=== PATIENT | female | born 1965 | race African-American/Black ===

== ENCOUNTER 2025-03-13 17:51 | Inpatient (IN) | payer MEDICAID ==
[~2025-03-13] VITALS: Ht 162.6 cm; Wt 82.6 kg
[2025-03-13] MEDS: CEFTRIAXONE 1GM/50ML 50 ML IV ONE (18:30)
[2025-03-13] MEDS: SODIUM CHLORIDE 0.9% (SEPSIS BOLUS) IV ONE (18:37)
[2025-03-13] MEDS: AZITHROMYCIN 500MG/250ML 250 ML IV ONE (18:37)
[2025-03-13 18:50] LABS: BASOPHILS % 0.4 % (0.0-2.0); DIFFERENTIAL COMMENT 0; EOSINOPHILS % 0.1 % (0.0-5.0); HEMATOCRIT. 45.9 % (36.0-48.0); HEMOGLOBIN. 13.3 g/dL (12.0-16.0); LYMPHOCYTES % 15.1 % (20.0-50.0); MEAN CORPUSCULAR HEMOGLOBIN 26.7 pg (28.0-32.0); MEAN CORPUSCULAR HGB CONC 28.9 g/dL (31.0-37.0); MEAN CORPUSCULAR VOLUME 92.5 fL (81.0-99.0); MEAN PLATELET VOLUME 9.5 fl (7.4-10.4); MONOCYTES % 6.8 % (2.0-8.0); NEUTROPHILS % 77.6 % (40.0-76.0); PLATELET 347 x1000/uL (130-400); RED BLOOD CELL COUNT 4.97 mill/uL (4.2-5.4); RED CELL DISTRIBUTION WIDTH 17.2 % (11.6-14.6); WHITE BLOOD COUNT 18.2 x1000/uL (4.5-11.0)
[2025-03-13 18:59] LABS: CHLORIDE 96 mEq/L (98-107); POTASSIUM 5.5 mEq/L (3.5-5.1); SODIUM 135 mEq/L (136-145)
[2025-03-13 19:00] LABS: CALCIUM 9.1 mg/dL (8.7-10.4)
[2025-03-13 19:05] LABS: CREATININE 1.8 mg/dL (0.6-1.0); ETHANOL BLOOD < 10 mg/dL (<10); UREA NITROGEN BLOOD 24 mg/dL (9-23)
[2025-03-13 19:06] LABS: TROPONIN I HIGH SENSITIVITY 8 ng/L (3.0-34)
[2025-03-13 19:07] LABS: BG BASE EXCESS -25.8 mmol/L (-2.0-3.0); BG CARBOXYHEMOGLOBIN 0.4 % (0.5-1.5); BG DEOXYHEMOGLOBIN 2.1 % (0.0-5.0); BG FRACTION INSPIRED OXYGEN 21; BG HCO3 ACT 2.6 mmol/L (21.0-28.0); BG METHEMOGLOBIN 0.5 % (0.5-1.5); BG OXYGEN SATURATION 97.9 % (94.0-98.0); BG PCO2 9.7 mmHg (32.0-45.0); BG PH 7.044 (7.350-7.450); BG PO2 133.5 mmHg (83.0-108.0); BG SAMPLE SITE RIGHT RADIAL; BG TOTAL HEMOGLOBIN 13.5 g/dL (12.0-16.0); BG VENT MODE ROOM AIR
[2025-03-13 19:07] LABS: ALANINE AMINOTRANSFERASE 20 IU/L (10-49); ALBUMIN 4.5 g/dL (3.2-4.8); ASPARTATE AMINOTRANSFERASE 28 IU/L (<34); BILIRUBIN DIRECT < 0.1 mg/dL (<=3.0); BILIRUBIN TOTAL 0.3 mg/dL (0.1-1.0)
[2025-03-13 19:17] LABS: CARBON DIOXIDE < 10 mEq/L (21-32); GLUCOSE 786 mg/dL (70-105)
[2025-03-13 19:19] LABS: LACTIC ACID 4.4 mmol/L (0.4-2.0)
[2025-03-13 19:29] LABS: BETA HYDROXYBUTYRATE 12.1 mMol/L (0.0-0.3)
[2025-03-13] MEDS ORDERED: INSULIN REGULAR (DRIP) 100 UNITS in SODIUM CHLORIDE 0.9% 99 ML IV SCH (19:30)
[2025-03-13] MEDS: BLOOD SUGAR DIAGNOSTIC STRIP TEST SCH ×2 (19:36→23:00)
[2025-03-13] MEDS: INSULIN REGULAR 100U/100ML PMX 100 ML IV SCH (19:49)
[2025-03-13 20:06] LABS: CLARITY URINE CLEAR (CLEAR); GLUCOSE URINE 3+ (NEGATIVE); KETONES URINE 4+ (NEGATIVE); LEUKOCYTE ESTERASE URINE NEGATIVE (NEGATIVE); NITRITE URINE NEGATIVE (NEGATIVE); OCCULT BLOOD URINE NEGATIVE (NEGATIVE); PROTEIN URINE TRACE (NEGATIVE); SPECIFIC GRAVITY URINE 1.023 (1.005-1.030); UROBILINOGEN URINE 0.2 E.U./dL (0.2-1.0)
[2025-03-13 20:08] LABS: CHLORIDE 99 mEq/L (98-107); POTASSIUM 5.3 mEq/L (3.5-5.1); SODIUM 136 mEq/L (136-145)
[2025-03-13 20:10] LABS: CALCIUM 8.7 mg/dL (8.7-10.4)
[2025-03-13 20:13] LABS: PARTIAL THROMBOPLASTIN TIME 29.7 sec (23.4-31.0); PROTHROMBIN TIME 10.7 sec (9.6-11.0)
[2025-03-13 20:14] LABS: CREATININE 1.8 mg/dL (0.6-1.0)
[2025-03-13 20:15] LABS: UREA NITROGEN BLOOD 24 mg/dL (9-23)
[2025-03-13 20:23] LABS: COLOR URINE STRAW (YELLOW)
[2025-03-13 20:25] LABS: BACTERIA URINE NONE SEEN; MUCUS URINE TRACE /lpf (< = 2+); RBC URINE NONE SEEN /hpf (0-2); SQUAMOUS EPITHELIAL CELL URINE NONE SEEN /lpf (RARE/1+); WBC URINE 0-2 /hpf (0-2)
[2025-03-13 20:27] LABS: *AMPHETAMINES SCREEN URINE NEGATIVE (NEGATIVE); *BARBITURATES SCREEN URINE NEGATIVE (NEGATIVE); *BENZODIAZEPINES SCREEN URINE NEGATIVE (NEGATIVE); *COCAINE SCREEN URINE NEGATIVE (NEGATIVE); CANNABINOID URINE SCREEN NEGATIVE (NEGATIVE); ECSTASY MDMA SCREEN URINE NEGATIVE (NEGATIVE); METHADONE URINE SCREEN NEGATIVE (NEGATIVE); OPIATES URINE SCREEN NEGATIVE (NEGATIVE); PHENCYCLIDINE URINE SCREEN NEGATIVE (NEGATIVE)
[2025-03-13 20:32] LABS: CARBON DIOXIDE < 10 mEq/L (21-32); GLUCOSE 785 mg/dL (70-105)
[2025-03-13] MEDS: HYDRALAZINE 20MG/ML VIAL IV PRN (21:24)
[2025-03-13] MEDS: SODIUM CHLORIDE 0.9% 1,000 ML IV NR (22:25)
[2025-03-13] MEDS ORDERED: SODIUM PHOSPHATE 15 MMOL in SODIUM CHLORIDE 0.9% 250 ML IV PRN (23:00)
[2025-03-13] MEDS ORDERED: POTASSIUM CHLORIDE 40 MEQ in SODIUM CHLORIDE 0.9% 250 ML IV PRN (23:00)
[2025-03-13] MEDS ORDERED: KCL 20MEQ/100ML PREMIX 100 ML IV PRN (23:00)
[2025-03-13] MEDS ORDERED: MAGNESIUM 2 G PREMIX 50 ML IV PRN (23:00)
[2025-03-13] MEDS ORDERED: BLOOD SUGAR DIAGNOSTIC STRIP TEST PRN (23:00)
[2025-03-14] MEDS: LACTATED RINGERS 1,000 ML IV SCH (00:07)
[2025-03-14 00:58] LABS: PHOSPHORUS 3.7 mg/dL (2.5-4.9)
[2025-03-14] MEDS: DEXT 5%/LACTATED RINGERS 1,000 ML IV SCH (02:48)
[2025-03-14] MEDS: DEXTROSE 50% WATER 50ML SYRINGE IV PRN (04:15)
[2025-03-14 05:32] LABS: CALCIUM 8.2 mg/dL (8.7-10.4); CARBON DIOXIDE 20 mEq/L (21-32); CHLORIDE 111 mEq/L (98-107); POTASSIUM 4.3 mEq/L (3.5-5.1); SODIUM 142 mEq/L (136-145)
[2025-03-14 05:38] LABS: CREATININE 1.6 mg/dL (0.6-1.0); GLUCOSE 195 mg/dL (70-105); UREA NITROGEN BLOOD 23 mg/dL (9-23)
[2025-03-14 05:40] LABS: PHOSPHORUS 1.3 mg/dL (2.5-4.9)
[2025-03-14] MEDS ORDERED: DEXTROSE 50% WATER 50ML SYRINGE IV PRN (06:00)
[2025-03-14] MEDS: INSULIN GLARGINE 100 UNITS/ML SUBCUT SCH (06:50)
[2025-03-14] MEDS: INSULIN LISPRO 100 UNITS/ML SUBCUT SCH (08:26)
[2025-03-14 08:40] VITALS: BP 162/90; PULSE 94; RESP 20; TEMP 36.4
[2025-03-14] MEDS: BLOOD SUGAR DIAGNOSTIC STRIP TEST SCH (08:47)
[2025-03-14] MEDS ORDERED: ENOXAPARIN 40MG/0.4ML SYR SUBCUT SCH (09:00)
[2025-03-14] MEDS: SODIUM CHLORIDE 0.9% 1,000 ML IV SCH (10:50)
[2025-03-14] MEDS: ENOXAPARIN 30MG/0.3ML SYR SUBCUT SCH (10:50)
[2025-03-14] MEDS: FAMOTIDINE 20MG/2ML VIAL IV SCH (10:52)
[2025-03-14 10:55] LABS: PHOSPHORUS 1.5 mg/dL (2.5-4.9)
[2025-03-14 12:00] VITALS: BP 138/92; PULSE 96; RESP 16; TEMP 37.2; O2SAT 97
[2025-03-14] MEDS: SODIUM PHOSPHATE 30 MMOL in DEXT 5% WATER 490 ML IV SCH (12:24)
[2025-03-14] MEDS ORDERED: POTASSIUM PHOSPHATE 30 MMOL in DEXT 5% WATER 490 ML IV SCH (13:45)
[2025-03-14 16:00] VITALS: BP 163/101; PULSE 96; RESP 15; TEMP 36.5; O2SAT 97
[2025-03-14 20:00] VITALS: BP 164/93; PULSE 103; RESP 19; TEMP 37.9; O2SAT 97
[2025-03-15] VITALS: BP 170/98; PULSE 97; RESP 19; TEMP 36.4; O2SAT 98
[2025-03-15 04:00] VITALS: BP 169/98; PULSE 96; RESP 19; TEMP 36.3; O2SAT 98
[2025-03-15 07:23] LABS: CARBON DIOXIDE 19 mEq/L (21-32); CHLORIDE 111 mEq/L (98-107); POTASSIUM 3.2 mEq/L (3.5-5.1); SODIUM 140 mEq/L (136-145)
[2025-03-15 07:24] LABS: CALCIUM 8.4 mg/dL (8.7-10.4)
[2025-03-15 07:29] LABS: CREATININE 0.9 mg/dL (0.6-1.0); GLUCOSE 137 mg/dL (70-105); UREA NITROGEN BLOOD 13 mg/dL (9-23)
[2025-03-15 08:00] VITALS: BP 161/84; PULSE 100; RESP 15; TEMP 36.5; O2SAT 97
[2025-03-15 12:00] VITALS: BP 177/64; PULSE 118; RESP 18; TEMP 36.5; O2SAT 99
[2025-03-15] MEDS: POTASSIUM PHOSPHATE 30 MMOL in SODIUM CHLORIDE 0.9% 490 ML IV ONE (12:28)
[2025-03-15 16:00] VITALS: BP 151/80; PULSE 117; RESP 18; TEMP 37.2; O2SAT 95
[2025-03-15 20:00] VITALS: BP 165/85; PULSE 116; RESP 20; TEMP 36.4; O2SAT 100
[2025-03-16] VITALS: BP 178/116; PULSE 101; RESP 18; TEMP 36.7; O2SAT 97
[2025-03-16 04:00] VITALS: BP 155/84; PULSE 120; RESP 18; TEMP 37.4; O2SAT 97
[2025-03-16] MEDS: ACETAMINOPHEN 325MG TABLET PO PRN (04:28)
[2025-03-16 07:05] LABS: HEMATOCRIT. 35.8 % (36.0-48.0); HEMOGLOBIN. 11.9 g/dL (12.0-16.0); MEAN CORPUSCULAR HEMOGLOBIN 26.6 pg (28.0-32.0); MEAN CORPUSCULAR HGB CONC 33.1 g/dL (31.0-37.0); MEAN CORPUSCULAR VOLUME 80.5 fL (81.0-99.0); MEAN PLATELET VOLUME 8.6 fl (7.4-10.4); PLATELET 231 x1000/uL (130-400); RED BLOOD CELL COUNT 4.45 mill/uL (4.2-5.4); RED CELL DISTRIBUTION WIDTH 15.5 % (11.6-14.6); WHITE BLOOD COUNT 5.3 x1000/uL (4.5-11.0)
[2025-03-16 07:08] LABS: CARBON DIOXIDE 21 mEq/L (21-32); CHLORIDE 110 mEq/L (98-107); POTASSIUM 3.3 mEq/L (3.5-5.1); SODIUM 140 mEq/L (136-145)
[2025-03-16 07:09] LABS: CALCIUM 8.6 mg/dL (8.7-10.4)
[2025-03-16 07:13] LABS: CREATININE 0.8 mg/dL (0.6-1.0)
[2025-03-16 07:14] LABS: DIFFERENTIAL COMMENT 1; GLUCOSE 131 mg/dL (70-105); UREA NITROGEN BLOOD 6 mg/dL (9-23)
[2025-03-16 07:16] LABS: PHOSPHORUS 2.9 mg/dL (2.5-4.9)
[2025-03-16 08:00] VITALS: BP 170/93; PULSE 98; RESP 18; TEMP 36.1; O2SAT 97
[2025-03-16 12:00] VITALS: BP 178/91; PULSE 113; RESP 18; TEMP 36.6; O2SAT 98
[2025-03-16] MEDS: POTASSIUM CHLORIDE 20MEQ TABLET SR PO SCH (13:12)
[2025-03-16] MEDS: PANTOPRAZOLE SODIUM 40 MG/VIAL IV SCH (13:12)
[2025-03-16] MEDS ORDERED: ONDANSETRON HCL 4MG/2ML INJ IV PRN (15:00)
[2025-03-16 15:08] LABS: PLATELET ESTIMATE NORMAL
[2025-03-16] MEDS: LOSARTAN 100 MG TABLET PO SCH (15:30)
[2025-03-16 16:00] VITALS: BP 168/89; PULSE 111; RESP 18; TEMP 36.5; O2SAT 100
[2025-03-16 20:00] VITALS: BP 136/70; PULSE 124; RESP 18; TEMP 37.9; O2SAT 94
[2025-03-17] MEDS: METOPROLOL TARTRATE 100MG TABLET PO SCH (00:36)
[2025-03-17] MEDS: POTASSIUM CHLORIDE 20MEQ TABLET SR PO NR (00:48)
[2025-03-17 04:00] VITALS: BP 150/92; PULSE 86; RESP 18; TEMP 36.9; O2SAT 100
[2025-03-17] MEDS: DILTIAZEM HCL 60MG TABLET PO SCH (06:39)
[2025-03-17 08:00] VITALS: BP 152/96; PULSE 92; RESP 20; TEMP 36.7; O2SAT 93
[2025-03-17] MEDS: ENOXAPARIN 40MG/0.4ML SYR SUBCUT SCH (09:34)
[2025-03-17 12:00] VITALS: BP 155/91; PULSE 82; RESP 18; TEMP 36.7; O2SAT 98
[2025-03-17 16:00] VITALS: BP 150/99; PULSE 77; RESP 16; TEMP 36.6; O2SAT 97
[2025-03-17] MEDS: HYDRALAZINE 20MG/ML VIAL IV PRN (17:17)
[2025-03-17 17:24] VITALS: BP 147/90; PULSE 77; TEMP 97.9; O2SAT 97
[2025-03-17] MEDS ORDERED: ACETAMINOPHEN 325MG TABLET PO PRN (18:00)
[2025-03-17] MEDS ORDERED: DILTIAZEM HCL 60MG TABLET PO SCH (22:00)
== END 2025-03-17 18:20 | disposition home or self-care (01) | DRG 420 ==
LOC: ER 17:51 → 6WST 20:13 → EDBEDREQ 20:18 → EDBEDREQSVC 03-14 07:53 → ENRESERV 03-14 08:24
PROVIDERS: ADMIT Internal Medicine; ATTEND Internal Medicine
DX: E11.10 Type 2 diabetes mellitus with ketoacidosis without coma (principal); N17.0 Acute kidney failure with tubular necrosis; G93.41 Metabolic encephalopathy; E87.5 Hyperkalemia; I10 Essential (primary) hypertension; F41.9 Anxiety disorder, unspecified; I25.10 Atherosclerotic heart disease of native coronary artery without angina pectoris; K29.70 Gastritis, unspecified, without bleeding; Z79.4 Long term (current) use of insulin; Z79.899 Other long term (current) drug therapy; Z86.73 Personal history of transient ischemic attack (TIA), and cerebral infarction without residual deficits; Z95.5 Presence of coronary angioplasty implant and graft
CPT/HCPCS: 36415; 36600; 71045; 74176; 80048; 80076; 80305; 80320; 81003; 82010; 82270; 82375; 82805; 82962; 83036; 83605; 83735; 83880; 83930; 84100; 84145; 84484; 85025; 93005; 99291; A4606; J0360; J0456; J0696; J1308; J1650; J1815; J2470; J3490; J7030; J7040; J7060; G0480